=== PATIENT | male | born 1990 | race African-American/Black ===

== ENCOUNTER 2019-05-03 05:31 | Emergency (ER) | payer MEDICAID ==
[~2019-05-03] VITALS: Ht 185.4 cm; Wt 113.4 kg
[2019-05-03 05:40] VITALS: BP 130/74
[2019-05-03 06:35] VITALS: BP 130/74
== END 2019-05-03 06:35 | disposition home or self-care (01) ==
LOC: MED 05:31
DX: J06.9 Acute upper respiratory infection, unspecified (principal); F17.200 Nicotine dependence, unspecified, uncomplicated
CPT/HCPCS: 99283

== ENCOUNTER 2019-12-22 10:26 | Emergency (ER) | payer MEDICAID ==
[~2019-12-22] VITALS: Ht 182.9 cm; Wt 112.0 kg
[2019-12-22 10:33] VITALS: BP 163/107
--- NOTE | 2019-12-22 10:40 | NUR ---
29 YEAR OLD MALE COMPLAINS OF RIGHT HAND PAIN AND WRIST PAIN. PT STATES HE WAS BOXING 5 DAYS AGO, BEEN HAVING PAIN EVER SINCE. CAP REFILL < 3 SEC, RADIAL PULSE +3. NO DISCOLORATION, SENSATION INTACT. PT AOX4, BREATHING EVEN AND UNLABORED, SKIN WARM AND DRY. BED IN LOWEST POSITION, LOCKED, BED RAIL UPX1. PMH - DENIES ALLERGIES - NKA
--- NOTE | 2019-12-22 11:24 | NUR ---
4 inch orthoglass used to apply right hand radial gutter splint. PMSC's assessed and within normal limits
--- NOTE | 2019-12-22 11:27 | NUR ---
RADIAL PULSE PRESENT, CAP REFILL < 3 SEC
[2019-12-22 11:49] VITALS: BP 163/107
== END 2019-12-22 11:47 | disposition home or self-care (01) ==
LOC: MED 10:26
DX: S62.390A Other fracture of second metacarpal bone, right hand, initial encounter for closed fracture (principal); W22.8XXA Striking against or struck by other objects, initial encounter; Y93.89 Activity, other specified; Y92.89 Other specified places as the place of occurrence of the external cause; Y99.8 Other external cause status
CPT/HCPCS: 73110; 73130; 99284

== ENCOUNTER 2020-11-10 08:05 | Emergency (ER) | payer MEDICAID ==
[~2020-11-10] VITALS: Ht 185.4 cm; Wt 112.5 kg
[2020-11-10 08:10] VITALS: BP 148/88
--- NOTE | 2020-11-10 08:16 | NUR ---
Patient ambulated to bed 06 with steady/even gait.
--- NOTE | 2020-11-10 08:25 | NUR ---
30 y/o M BIB self from home with c/c left sided back pain s/p basketball injury. Patient A&Ox4, ambulatory, states @ 1400 yesterday he began experiencing left flank pain after playing basketball. Patient reports 8/10, pressure/intermittent, non-radiating pain to left flank region. Patient denies any fall, injury, trauma, swelling, numbness, tingling, bladder or urinary issues. Patient reports Tylenol at 0100 this morning without relief to pain. VSS; respirations even/unlabored. No swelling, trauma noted to pain site. Bed locked in lowest position, side rails x 1, call light in reach. PMH/Sx/Meds: Denies NKA
--- NOTE | 2020-11-10 08:31 | NUR ---
Dr. Szymanski is evaluating the patient at bedside.
--- NOTE | 2020-11-10 08:35 | NUR ---
Carie jennings in [facility] - 11/10/20 at 0843 by [facility] Dr. Szymanski is evaluating patient at bedside.
[2020-11-10] MEDS ORDERED: KETOROLAC 60 MG/2 ML VIAL IM ONE (08:45)
[2020-11-10] MEDS ORDERED: ONDANSETRON 4 MG ODT PO ONE (08:45)
[2020-11-10] MEDS ORDERED: HYDROcodone/APAP 5/325 MG 1 TAB TAB PO ONE (08:45)
--- NOTE | 2020-11-10 09:03 | NUR ---
Patient reports pain 1/10 at this time; states positive relief to pain and nausea. Denies nausea.
[2020-11-10] MEDS ORDERED: ACET-8386 PO (09:04)
[2020-11-10] MEDS ORDERED: ONDA-24 PO (09:04)
[2020-11-10] MEDS ORDERED: CYCL-711 PO (09:04)
[2020-11-10 09:17] VITALS: BP 148/88
--- NOTE | 2020-11-10 09:17 | NUR ---
Patient discharged with v/s stable. Written and verbal after care instructions given and explained. Patient alert, oriented and verbalized understanding of instructions. Ambulatory with steady gait. All questions addressed prior to discharge. ID band removed. Patient advised to follow up with PMD. Rx of Flexeril, Hydrocodone/Acetaminophen, Zofran given. Patient educated on indication of medication including possible reaction and side effects. Opportunity to ask questions provided and answered.
== END 2020-11-10 09:17 | disposition home or self-care (01) ==
LOC: MED 08:05
DX: M62.830 Muscle spasm of back (principal); Z79.899 Other long term (current) drug therapy
CPT/HCPCS: 96372; 99283; J1885; Q0162

== ENCOUNTER 2023-02-13 18:16 | Emergency (ER) | payer MEDICAID ==
[~2023-02-13] VITALS: Ht 185.4 cm; Wt 114.3 kg
[~2023-02-13 18:16] MED LIST: ACET-8905 PO; CYCL-711 PO; ONDA-188 PO
[2023-02-13 18:38] VITALS: BP 121/83; PULSE 69; RESP 20; TEMP 98.3; O2SAT 98
== END 2023-02-13 19:33 | disposition home or self-care (01) ==
LOC: MED 18:16
DX: S81.812D Laceration without foreign body, left lower leg, subsequent encounter (principal); Z48.02 Encounter for removal of sutures; X58.XXXD Exposure to other specified factors, subsequent encounter
CPT/HCPCS: 99281

== ENCOUNTER 2023-06-23 12:09 | Emergency (ER) | payer MEDICAID, OTHER ==
[~2023-06-23] VITALS: Ht 185.4 cm; Wt 107.5 kg
[2023-06-23 12:24] VITALS: BP 143/91; PULSE 57; RESP 14; TEMP 97.1; O2SAT 100
[2023-06-23 12:37] VITALS: O2SAT 100
== END 2023-06-23 13:06 | disposition left against medical advice (07) ==
LOC: MED 12:09
DX: M54.50 Low back pain, unspecified (principal); M54.2 Cervicalgia; R51.9 Headache, unspecified; Z53.21 Procedure and treatment not carried out due to patient leaving prior to being seen by health care provider
CPT/HCPCS: 99281